=== PATIENT | male | born 1995 ===

== ENCOUNTER 2021-08-08 18:54 | Emergency (ER) | payer SELFPAY ==
[2021-08-08 19:07] VITALS: BP 136/90; PULSE 100; RESP 17; TEMP 36.2; O2SAT 99
--- NOTE | 2021-08-08 19:07 | ECG_ITS ---
Measurements Intervals [place] Rate: 98 P: 70 [place]: 132 QRS: 34 QRSD: 93 T: 34 QT: 316 QTc: 404 Interpretive Statements SINUS RHYTHM INCOMPLETE RIGHT BUNDLE BRANCH BLOCK BORDERLINE ECG Electronically Signed On 08-08-2021 20:00:40 DATA PROCESSING SUPERVISOR by Gary Posey D.O.
== END 2021-08-09 03:20 | disposition left against medical advice (07) ==
LOC: ANHED 19:31
PROVIDERS: Emergency Provider Emergency Medicine
DX: R07.9 Chest pain, unspecified (principal)
CPT/HCPCS: 93005; 99199